=== PATIENT | male | born 1945 | race Caucasian/White ===

== ENCOUNTER 2018-03-24 10:19 | Inpatient (IN) | payer MEDICARE, BC, OTHER ==
[2018-03-24] VITALS (12 sets, daily range): BP systolic 136–154; BP diastolic 81–95
[~2018-03-24] VITALS: Ht 172.7 cm; Wt 82.6 kg
[~2018-03-24 10:19] MED LIST: ALLO100T PO; AMLO5TAB PO; ATOR20TA66 PO; CHLO25TA3 PO
[2018-03-24] MEDS ORDERED: nitroGLYCERIN 0.4mg SUBLingual tab SL PRN (10:35)
[2018-03-24] MEDS ORDERED: ATOR10TA70 PO (10:43)
[2018-03-24 10:44] LABS: BASOPHILS % (AUTO) 0.3 % (0-1); EOSINOPHILS % (AUTO) 0.5 % (0-6); HEMATOCRIT 47.7 % (42.0-52.0); HEMOGLOBIN 16.3 g/dl (14.0-17.9); LYMPHOCYTES # (AUTO) 1.8 X10'3 (1.1-4.8); LYMPHOCYTES % (AUTO) 25.4 % (21-51); MEAN CORPUSCULAR HEMOGLOBIN 30.3 PG (27.0-31.0); MEAN CORPUSCULAR HGB CONC 34.1 % (33.0-36.5); MEAN CORPUSCULAR VOLUME 88.8 FL (78-98); MEAN PLATELET VOLUME 8.5 FL (7.4-10.4); MONOCYTES # (AUTO) 1.1 X10'3 (0-0.9); MONOCYTES % (AUTO) 15.6 % (2-12); NEUTROPHILS % (AUTO) 58.2 % (42-75); PLATELET COUNT 211 X10'3 (140-440); RED BLOOD COUNT 5.37 X10'6 (4.70-6.10); RED CELL DISTRIBUTION WIDTH 13.4 % (11.5-14.5); WHITE BLOOD COUNT 6.9 X10'3 (4.5-11.0)
[2018-03-24] MEDS ORDERED: heparin 10,000 units/1 ML INJ IV ONE ×2 (10:55→11:10)
[2018-03-24] MEDS ORDERED: heparin 10,000 units/1 ML INJ IV PRN (10:55)
[2018-03-24] MEDS ORDERED: aspirin 81mg tab.chew PO ONE ×2 (10:55→16:00)
[2018-03-24] MEDS ORDERED: metoprolol tartrate 1mg/ml inj IV ONE (10:55)
[2018-03-24 10:57] LABS: PARTIAL THROMBOPLASTIN TIME 27 SECONDS (22-32); PROTHROMBIN TIME 10.2 SECONDS (9.0-12.0)
[2018-03-24 11:02] LABS: ALANINE AMINOTRANSFERASE 47 U/L (12-78); ALKALINE PHOSPHATASE 95 IU/L (46-116); ANION GAP 8 (8-16); ASPARTATE AMINO TRANSFERASE 26 U/L (10-37); BILIRUBIN,TOTAL 0.7 MG/DL (0.1-1.0); BLOOD UREA NITROGEN 16 MG/DL (7-18); BUN/CREATININE RATIO 15.5 (5.4-32.0); CALCIUM 9.4 MG/DL (8.5-10.1); CHLORIDE 99 MMOL/L (99-107); CREATININE 1.03 MG/DL (0.60-1.10); GLUCOSE 107 MG/DL (70-104); POTASSIUM 3.6 MMOL/L (3.5-5.1); SODIUM 135 MMOL/L (135-145); TOTAL CARBON DIOXIDE 27.7 MMOL/L (24-32); TOTAL PROTEIN 8.2 G/DL (6.4-8.2); eGFR 71 ML/MIN
[2018-03-24] MEDS ORDERED: nitroGLYCERIN-Tridil 50MG/D5W 250 ML IV ONE (12:10)
[2018-03-24] MEDS ORDERED: fentaNYL/PF 50MCG/1 ML 2ML syringe ONE (12:10)
[2018-03-24] MEDS ORDERED: midazolam 2 mg/2 ml injection ONE (12:10)
[2018-03-24] MEDS ORDERED: heparin 1,000unit/ml 10ml vial 10 ML ONE (12:11)
[2018-03-24] MEDS ORDERED: LIDOcaine 1% 30ml preserv. free vial ONE (12:11)
[2018-03-24] MEDS ORDERED: iohexol 350MG/ML 100ml bottle IV ONE ×2 (12:11→13:01)
[2018-03-24] MEDS ORDERED: iohexol 350 MG/ML 50ML vial IV ONE (12:11)
[2018-03-24] MEDS ORDERED: normal saline 1000ml 1,000 ML IV ONE (14:30)
[2018-03-24] MEDS ORDERED: magnesium 1gm/100ml D5W IVPB 100 ML IV PRN (14:50)
[2018-03-24] MEDS ORDERED: magnesium 4gm in 100ml NS 100 ML IV PRN (14:50)
[2018-03-24] MEDS ORDERED: acetaminophen 325mg tablet PO PRN (14:50)
[2018-03-24] MEDS ORDERED: potassium Cl 40MEQ/NS 500ml 500 ML IV PRN ×2 (14:50)
[2018-03-24] MEDS ORDERED: morphine 2 MG/ML inj. syringe IV PRN ×2 (14:50)
[2018-03-24] MEDS ORDERED: potassium Cl 20 mEq SR tablet PO PRN (14:50)
[2018-03-24] MEDS ORDERED: magnesium hydroxide 30ml (MOM) UD suspension PO PRN ×2 (14:50→16:05)
[2018-03-24] MEDS ORDERED: ondansetron/PF 4mg/2ml inj IV PRN (14:50)
[2018-03-24] MEDS ORDERED: ipratropium/albuterol 3ml nebule NEB PRN (14:50)
[2018-03-24] MEDS ORDERED: mag hydrox/Alum hydrox/simeth 30ml oral suspension PO PRN (14:50)
[2018-03-24 15:27] LABS: C-REACTIVE PROTEIN 2.52 MG/DL (0.0-0.5); CHOL/HDL RATIO 4.3 (0.00-4.99); CHOLESTEROL 138 MG/DL (0-200); HDL CHOLESTEROL 32 MG/DL (35-60); LDL CHOLESTEROL 90 MG/DL (50-100); TRIGLYCERIDES 124 MG/DL (20-135)
[2018-03-24 16:24] LABS: ALBUMIN 3.7 G/DL (3.4-5.0); ANION GAP 9 (8-16); BLOOD UREA NITROGEN 14 MG/DL (7-18); BUN/CREATININE RATIO 17.3 (5.4-32.0); CALCIUM 8.9 MG/DL (8.5-10.1); CHLORIDE 101 MMOL/L (99-107); CREATININE 0.81 MG/DL (0.60-1.10); GLUCOSE 89 MG/DL (70-104); POTASSIUM 3.2 MMOL/L (3.5-5.1); SODIUM 136 MMOL/L (135-145); TOTAL CARBON DIOXIDE 25.6 MMOL/L (24-32); eGFR > 90 ML/MIN
[2018-03-24] MEDS ORDERED: proCHLORperazine 10 MG/2 ml inj IV PRN (17:10)
[2018-03-24] MEDS ORDERED: carVEDilol 3.125mg tablet PO SCH (20:00)
[2018-03-24] MEDS: docusate sod 100mg capsule PO SCH (20:29)
[2018-03-24] MEDS: carvedilol 6.25mg tablet PO SCH (20:29)
[2018-03-24] MEDS: atorvastatin 20mg tablet PO SCH (20:29)
[2018-03-24] MEDS ORDERED: lisinopril 10 MG tablet PO SCH (21:00)
[2018-03-24] MEDS: potassium Cl 20 mEq SR tablet PO PRN (22:25)
[2018-03-25 01:30] VITALS: BP 136/85
[2018-03-25 03:00] VITALS: BP 116/73
[2018-03-25 05:30] VITALS: BP 116/75
[2018-03-25 06:23] LABS: ALANINE AMINOTRANSFERASE 42 U/L (12-78); ALBUMIN 3.3 G/DL (3.4-5.0); ALBUMIN/GLOBULIN RATIO 0.9 (1.1-1.5); ALKALINE PHOSPHATASE 87 IU/L (46-116); ANION GAP 6 (8-16); ASPARTATE AMINO TRANSFERASE 31 U/L (10-37); BILIRUBIN,TOTAL 0.8 MG/DL (0.1-1.0); BLOOD UREA NITROGEN 13 MG/DL (7-18); BUN/CREATININE RATIO 14.3 (5.4-32.0); CALCIUM 8.8 MG/DL (8.5-10.1); CHLORIDE 101 MMOL/L (99-107); CREATININE 0.91 MG/DL (0.60-1.10); GLUCOSE 86 MG/DL (70-104); POTASSIUM 3.4 MMOL/L (3.5-5.1); SODIUM 137 MMOL/L (135-145); TOTAL CARBON DIOXIDE 29.9 MMOL/L (24-32); TOTAL PROTEIN 6.9 G/DL (6.4-8.2); eGFR 82 ML/MIN
[2018-03-25 06:25] LABS: CHOL/HDL RATIO 4.5 (0.00-4.99); CHOLESTEROL 112 MG/DL (0-200); HDL CHOLESTEROL 25 MG/DL (35-60); MAGNESIUM 1.8 MG/DL (1.5-2.4); TRIGLYCERIDES 105 MG/DL (20-135); TROPONIN I 0.09 NG/ML (0.0-0.05)
[2018-03-25 07:00] VITALS: BP 138/80
[2018-03-25] MEDS: atorvastatin 20mg tablet PO SCH (07:29)
[2018-03-25] MEDS: potassium Cl 20 mEq SR tablet PO PRN (07:30)
[2018-03-25] MEDS: docusate sod 100mg capsule PO SCH (07:30)
[2018-03-25] MEDS: carvedilol 6.25mg tablet PO SCH (07:30)
[2018-03-25 07:57] LABS: BASOPHILS % (AUTO) 0.6 % (0-1); EOSINOPHILS # (AUTO) 0.1 X10'3 (0-0.9); EOSINOPHILS % (AUTO) 1.5 % (0-6); HEMATOCRIT 43.1 % (42.0-52.0); HEMOGLOBIN 14.6 g/dl (14.0-17.9); LYMPHOCYTES # (AUTO) 2.1 X10'3 (1.1-4.8); LYMPHOCYTES % (AUTO) 33.3 % (21-51); MEAN CORPUSCULAR HEMOGLOBIN 30.4 PG (27.0-31.0); MEAN CORPUSCULAR HGB CONC 33.8 % (33.0-36.5); MONOCYTES % (AUTO) 15.8 % (2-12); NEUTROPHILS # (AUTO) 3.1 X10'3 (1.8-7.7); NEUTROPHILS % (AUTO) 48.8 % (42-75); PLATELET COUNT 194 X10'3 (140-440); RED BLOOD COUNT 4.79 X10'6 (4.70-6.10); RED CELL DISTRIBUTION WIDTH 13.1 % (11.5-14.5); WHITE BLOOD COUNT 6.4 X10'3 (4.5-11.0)
[2018-03-25] MEDS ORDERED: lisinopril 5mg tablet PO SCH (08:00)
[2018-03-25] MEDS ORDERED: K and/or MAG REPLACEMENT MC SCH (08:00)
[2018-03-25] MEDS ORDERED: atorvastatin 20mg tablet PO SCH (08:00)
[2018-03-25] MEDS ORDERED: aspirin 81mg tab.chew PO SCH (08:30)
[2018-03-25 11:00] VITALS: BP 110/75
[2018-03-25] MEDS ORDERED: ASPI-1265 PO (11:44)
[2018-03-25] MEDS ORDERED: ATOR20TA66 PO (11:44)
[2018-03-25] MEDS ORDERED: LISI-642 PO (11:44)
[2018-03-25] MEDS ORDERED: CARV6.253 PO (11:44)
[2018-03-25 13:40] LABS: LDL CHOLESTEROL 72 MG/DL (50-100)
[2018-03-25] MEDS ORDERED: enoxaparin 40mg/0.4ml syringe SUBCUT SCH (21:00)
== END 2018-03-25 13:25 | disposition home or self-care (01) | DRG 286 ==
LOC: ER 10:19 → PCU 3S 14:46
PROVIDERS: ADMIT Family Medicine; ATTEND Family Medicine
PROC: 4A023N7 Measurement of Cardiac Sampling and Pressure, Left Heart, Percutaneous Approach (ICD-10-PCS; principal; 2018-03-24)
PROC: B2111ZZ Fluoroscopy of Multiple Coronary Arteries using Low Osmolar Contrast (ICD-10-PCS; 2018-03-24)
PROC: B2151ZZ Fluoroscopy of Left Heart using Low Osmolar Contrast (ICD-10-PCS; 2018-03-24)
DX: I40.0 Infective myocarditis (principal); I50.21 Acute systolic (congestive) heart failure; E78.00 Pure hypercholesterolemia, unspecified; E78.5 Hyperlipidemia, unspecified; F17.290 Nicotine dependence, other tobacco product, uncomplicated; I11.0 Hypertensive heart disease with heart failure; G47.33 Obstructive sleep apnea (adult) (pediatric); M35.3 Polymyalgia rheumatica; R79.82 Elevated C-reactive protein (CRP); I25.10 Atherosclerotic heart disease of native coronary artery without angina pectoris; M10.9 Gout, unspecified; Z79.899 Other long term (current) drug therapy; Z91.19 Patient's noncompliance with other medical treatment and regimen; Z87.442 Personal history of urinary calculi; Z80.1 Family history of malignant neoplasm of trachea, bronchus and lung; Z80.8 Family history of malignant neoplasm of other organs or systems; Z82.49 Family history of ischemic heart disease and other diseases of the circulatory system
CPT/HCPCS: 36415; 71045; 80048; 80053; 80061; 83605; 83735; 84484; 85025; 85347; 85610; 85651; 85730; 86140; 87040; 87070; 93005; 93306; 93458; 94760; 96360; 99152; 99153; 99285; A4620; A6212; A6257; C1760; C1769; J1644; J2250; J3010; J3490; J7030; Q9967

== ENCOUNTER 2022-03-09 09:58 | Inpatient (IN) | payer MEDICARE, BC ==
[2022-03-02 16:10] LABS: BASOPHILS # (AUTO) 0.1 X10'3 (0-0.2); BASOPHILS % (AUTO) 0.7 % (0-1); EOSINOPHILS # (AUTO) 0.3 X10'3 (0-0.9); EOSINOPHILS % (AUTO) 3.9 % (0-6); LYMPHOCYTES # (AUTO) 2.5 X10'3 (1.1-4.8); LYMPHOCYTES % (AUTO) 31.9 % (21-51); MEAN CORPUSCULAR HEMOGLOBIN 30.8 PG (27.0-31.0); MEAN CORPUSCULAR HGB CONC 34.3 g/dL (33.0-36.5); MEAN CORPUSCULAR VOLUME 89.7 FL (78-98); MEAN PLATELET VOLUME 8.9 FL (7.4-10.4); MONOCYTES % (AUTO) 12.3 % (2-12); NEUTROPHILS % (AUTO) 51.2 % (42-75); PRE OP HEMATOCRIT 39.6 % (42.0-52.0); PRE OP HEMOGLOBIN 13.6 g/dL (14.0-17.9); PRE OP PLATELET COUNT 240 X10'3 (140-440); RED BLOOD COUNT 4.42 X10'6 (4.70-6.10); RED CELL DISTRIBUTION WIDTH 13.4 % (11.5-14.5)
[2022-03-02 16:25] LABS: ALKALINE PHOSPHATASE 89 IU/L (46-116); BLOOD UREA NITROGEN 17 MG/DL (7-18); BUN/CREATININE RATIO 19.3 (5.4-32.0); CALCIUM 8.9 MG/DL (8.5-10.1); CHLORIDE 102 MMOL/L (99-107); CREATININE 0.88 MG/DL (0.60-1.10); PRE OP ALT 20 U/L (30-65); PRE OP ANION GAP 9 (8-16); PRE OP AST 30 U/L (10-37); PRE OP BILIRUB, TOTAL 0.7 MG/DL (0.0-1.0); PRE OP GLUCOSE 114 MG/DL (70-104); PRE OP POTASSIUM 3.9 MMOL/L (3.4-5.1); PRE OP SODIUM 140 MMOL/L (135-145); TOTAL CARBON DIOXIDE 28.8 MMOL/L (24-32); eGFR 85 ML/MIN
[2022-03-09] VITALS (26 sets, daily range): BP systolic 119–180; BP diastolic 66–100
[~2022-03-09] VITALS: Ht 172.7 cm; Wt 83.2 kg
[~2022-03-09 09:58] MED LIST changes: -AMLO5TAB PO; +ASPI-1265 PO; -ATOR20TA66 PO; +ATOR40TA71 PO; +CARV6.253 PO; -CHLO25TA3 PO; +CHOL50004 PO; +DOCUMENT DATE & TIME OF BETA-BLOCKER PO ONE; +LISI10TA27 PO; +OMEG-79 PO; +SILD50TA PO; +ceFAZolin inj. 2,000 MG in dextrose 5%-water 100 ML IV ONE; +famotidine 20mg tablet PO ONE; +ringers solution, lacted 1,000 ML IV SCH; +tranexamic acid 650mg tablet PO ONE; +vancomycin 1,500 MG in NS 300ml IV soln IV ONE
--- NOTE | 2022-03-09 11:49 | NUR ---
PATIENT'S BP ON ADMISSION WAS ELEVATED AT 174/100. CHECKED BP AT 1148 Addendum: 03/09/22 at 1150 by Julia Agustin RN CHECKED BP AT 1148 BP IS CURRENTLY 146/66
[2022-03-09] MEDS ORDERED: albuterol 2.5 MG/3 ML nebule NEB ONE (12:45)
[2022-03-09] MEDS ORDERED: ondansetron/PF 4mg/2ml inj IV PRN ×2 (13:15→16:25)
[2022-03-09] MEDS ORDERED: ringers solution, lacted 1,000 ML IV SCH (13:15)
[2022-03-09] MEDS ORDERED: ROPIVAcaine 0.2%/PF PUMP/bolus 545 ML INTERSCALE SCH (13:15)
[2022-03-09] MEDS ORDERED: ROPIVAcaine 0.2% (10 MG/5 ML) BOLUS INJECTION INTERSCALE PRN (13:15)
[2022-03-09] MEDS ORDERED: HYDROmorphone/PF 0.2 MG/ML SYRINGE IV PRN ×2 (13:15)
[2022-03-09] MEDS ORDERED: fentaNYL/PF 50MCG/1 ML 2ML syringe ONE ×2 (13:34→15:20)
[2022-03-09] MEDS ORDERED: midazolam 1 mg/ML 2ml injection ONE (13:35)
[2022-03-09] MEDS ORDERED: ROPIVAcaine 0.5% (5mg/ml) 30ml vial ONE ×4 (13:35→16:48)
[2022-03-09] MEDS ORDERED: ketorolac trometh. 30mg/ml inj. ONE (13:36)
[2022-03-09] MEDS ORDERED: LIDOcaine 1%/PF 5ML 10 MG/ML VIAL ONE ×2 (13:38→13:41)
[2022-03-09] MEDS ORDERED: propofol inj 20 ML IV ONE (13:38)
[2022-03-09] MEDS ORDERED: ketamine 50mg/5ml syringe ONE (15:20)
[2022-03-09] MEDS ORDERED: ePHEDrine 50MG/ML INJ. ONE (16:08)
[2022-03-09] MEDS ORDERED: acetaminophen 1,000mg/100ml IV 100 ML IV ONE (16:08)
--- NOTE | 2022-03-09 16:15 | NUR ---
Received from OR via HOSPITAL BED, accompanied by Anesthesiologist DR ALARCON and report given by Anesthesiolgist. PT IS GROGGY BUT WAKES TO VERBAL STIMULI AND ANSWERES QUESTIONS APPROPRIATELY. PT PLACED ON BEDISDE MONITOR, VSS AND IN SR WITH RATE IN HIGH 60'S. PT IS RECEIVING 8L O2 TO NC AND TOLERATING WELL WITH O2 SAT >95%. WILL TITRATE O2 DOWN PT TOLERATES. PT HAS 18G PIV TO LEFT FA WITH LR INFUSING @ 100ML/HR. PT HAS DRSG TO RT SHOULDER WITH SHOULDER WRAP AND ICE PLACE, ALL ARE CDI. RT ARM IS IN A SLING. PT STATES PAIN LEVEL AT A 6. WILL CHECK AVAIL MEDS AND TREAT ORDERED AND CONTINUE TO ASSESS.
[2022-03-09] MEDS: morphine 2 MG/ML inj. syringe IV PRN ×2 (16:18→16:47)
[2022-03-09] MEDS ORDERED: oxyCODONE IR 5mg (immed. release) tablet PO PRN ×2 (16:25)
[2022-03-09] MEDS ORDERED: HYDROcodone/acetaminophen 10/325mg tab PO PRN ×2 (16:25)
[2022-03-09] MEDS ORDERED: magnesium hydroxide 30ml (MOM) UD suspension PO PRN (16:25)
[2022-03-09] MEDS ORDERED: acetaminophen 325mg tablet PO PRN (16:25)
[2022-03-09] MEDS ORDERED: HYDROmorphone 1 mg/ml syringe IV PRN (16:25)
[2022-03-09] MEDS ORDERED: naloxone 0.4 mg/ml inj IV PRN (16:25)
[2022-03-09] MEDS ORDERED: non-formulary drug (Sildenafil Citrate* (Viagra*) 1 TAB) PO SCH (16:25)
[2022-03-09] MEDS ORDERED: bisacodyl 10mg suppository rectal RC PRN (16:25)
[2022-03-09] MEDS ORDERED: HYDROmorphone inj. 0.5 MG/0.5 ML DISP.SYRIN IV PRN (16:25)
[2022-03-09] MEDS ORDERED: diphenhydrAMINE 25mg capsule PO PRN ×2 (16:25)
--- NOTE | 2022-03-09 17:20 | NUR ---
ANESTHESIA WAS AT BEDSIDE TO RE-DO BLOCK FOR PAIN CONTROL. PT TOLERATED PROCEDURE WELL AND STATES PAIN IS RELIEVED AND IS NOW A LEVEL 2 ON PAIN SCALE. WILL CONTINUE TO ASSESS
--- NOTE | 2022-03-09 18:03 | NUR ---
REPORT CALLED TO SAMUEL BAUMAN ON ORTHO FLOOR AND WILL MOVE PT UP AFTER SHIFT CHANGE.
--- NOTE | 2022-03-09 19:00 | NUR ---
Pt. arrived on the floor via gurney accompanied by the recovery nurse Bonilla BAUMAN. Pt. awake A & O at this time. Pt's Cece at the bed side. No c/o pain, Rt shoulder in sling , and dressing CDI at this time. Circulation and movement present but sensation absent at this time . Call light within reach and bed in low position. Addendum: 03/10/22 at 0216 by Priscilla Ring RN Amended: Links added.
--- NOTE | 2022-03-09 19:02 | NUR ---
PATIENT HAS MET ALL CRITERIA FOR TRANSFER TO THE ORTHO FLOOR. VSS. DRESSINGS INTACT. BED LOW, CALL LIGHT PRESENT AND 2 RAILS UP. JESENIA RN PRESENT TO ACCEPT CARE OF PATIENT. ALL QUESTIONS ANSWERED TO ACCEPTING RN.
[2022-03-09] MEDS ORDERED: vancomycin/NS 1 GM ADD-VANTAGE 250 ML IV SCH (20:00)
[2022-03-09] MEDS ORDERED: sennosides 8.6mg tablet PO SCH (21:00)
[2022-03-09] MEDS: carvedilol 6.25mg tablet PO SCH (22:52)
[2022-03-09] MEDS: acetaminophen 325mg tablet PO SCH (22:54)
[2022-03-10] MEDS: potassium cl 20mEq in 1/2 NS 1,000 ML IV SCH ×2 (00:25→08:25)
[2022-03-10] MEDS: ceFAZolin/D5W- 1GM premix 50 ML IV SCH ×2 (01:47→08:16)
--- NOTE | 2022-03-10 02:00 | NUR ---
Pt. awake denies pain a this time CMS present to rt upper extremity at this time. Addendum: 03/10/22 at 2 by Priscilla Ring RN Amended: Links added.
[2022-03-10] MEDS: acetaminophen 325mg tablet PO SCH ×2 (05:05→08:05)
[2022-03-10 06:00] VITALS: BP 132/88
[2022-03-10] MEDS ORDERED: atorvastatin 20mg tablet PO SCH (08:00)
[2022-03-10] MEDS ORDERED: lisinopril 10 MG tablet PO SCH (08:00)
[2022-03-10] MEDS ORDERED: OMEGA-3/DHA/EPA/FISH OIL 1 EACH CAPSULE.DR PO SCH (08:00)
[2022-03-10] MEDS ORDERED: allopurinol 100mg tablet PO SCH (08:00)
[2022-03-10] MEDS ORDERED: cholecalciferol (vitamin D3) 1,000 unit (25mcg) tablet PO SCH (08:00)
[2022-03-10] MEDS: carvedilol 6.25mg tablet PO SCH (08:03)
[2022-03-10] MEDS ORDERED: aspirin 325mg tablet PO SCH (08:30)
[2022-03-10 08:43] LABS: BASOPHILS % (AUTO) 0.2 % (0-1); EOSINOPHILS % (AUTO) 0.1 % (0-6); HEMATOCRIT 37.4 % (42.0-52.0); HEMOGLOBIN 12.6 g/dl (14.0-17.9); LYMPHOCYTES # (AUTO) 1.5 X10'3 (1.1-4.8); LYMPHOCYTES % (AUTO) 15.8 % (21-51); MEAN CORPUSCULAR HEMOGLOBIN 30.2 PG (27.0-31.0); MEAN CORPUSCULAR HGB CONC 33.6 g/dL (33.0-36.5); MEAN CORPUSCULAR VOLUME 89.9 FL (78-98); MEAN PLATELET VOLUME 9.4 FL (7.4-10.4); MONOCYTES # (AUTO) 0.8 X10'3 (0-0.9); MONOCYTES % (AUTO) 8.7 % (2-12); NEUTROPHILS # (AUTO) 7.3 X10'3 (1.8-7.7); NEUTROPHILS % (AUTO) 75.2 % (42-75); PLATELET COUNT 262 X10'3 (140-440); RED BLOOD COUNT 4.17 X10'6 (4.70-6.10); RED CELL DISTRIBUTION WIDTH 13.9 % (11.5-14.5); WHITE BLOOD COUNT 9.7 X10'3 (4.5-11.0)
[2022-03-10 09:09] LABS: ANION GAP 8 (8-16); CHLORIDE 100 MMOL/L (99-107); POTASSIUM 4.9 MMOL/L (3.5-5.1); SODIUM 135 MMOL/L (135-145); TOTAL CARBON DIOXIDE 26.8 MMOL/L (24-32)
[2022-03-10 10:00] VITALS: BP 154/76
--- NOTE | 2022-03-10 11:45 | NUR ---
Patient discharged in stable condition. iv removed tip intact no complications. belongings sent with pt. pt educated on discharge follow up. powder packs sent with pt. pt discharged with to home
[2022-03-11] MEDS ORDERED: acetaminophen 325mg tablet PO PRN (16:25)
== END 2022-03-10 11:20 | disposition home or self-care (01) | DRG 483 ==
LOC: PAS IN 09:58 → ORTHO 4S 18:00
PROVIDERS: ADMIT Orthopaedic Surgery; ATTEND Orthopaedic Surgery
PROC: 0LS30ZZ Reposition Right Upper Arm Tendon, Open Approach (ICD-10-PCS; 2022-03-09)
PROC: 3E0T3BZ Introduction of Anesthetic Agent into Peripheral Nerves and Plexi, Percutaneous Approach (ICD-10-PCS; 2022-03-09)
PROC: 0RRJ00Z Replacement of Right Shoulder Joint with Reverse Ball and Socket Synthetic Substitute, Open Approach (ICD-10-PCS; principal; 2022-03-09 14:19)
DX: M19.011 Primary osteoarthritis, right shoulder (principal); M65.811 Other synovitis and tenosynovitis, right shoulder; M75.121 Complete rotator cuff tear or rupture of right shoulder, not specified as traumatic
CPT/HCPCS: 36415; 80051; 80053; 82948; 85025; 87081; 87811; 94640; 97116; 97161; 97530; A4565; A4615; A4618; A7000; C1776; G0378; J0131; J0690; J1885; J2250; J2270; J2704; J2795; J3010; J3370; J3490; J7040; J7060; J7120